=== PATIENT | male | born 1975 | race Two or more races ===

== ENCOUNTER 2019-02-15 01:52 | Emergency (ER) | payer SELFPAY ==
[~2019-02-15] VITALS: Ht 188 cm; Wt 90.7 kg
[2019-02-15 02:11] VITALS: BP 146/80
[2019-02-15] MEDS ORDERED: HALOPERIDOL LACTATE INJ 5 MG/ML VIAL IM ONE (02:30)
[2019-02-15] MEDS ORDERED: diphenhydrAMINE HCL 50 MG/ML VIAL IM ONE (02:30)
[2019-02-15] MEDS ORDERED: LORAZEPAM INJ 2 MG/ML VIAL IM ONE (02:30)
[2019-02-15 02:49] LABS: BASOPHILS % (AUTO) 0.2 % (0.0-2.0); EOSINOPHILS % (AUTO) 3.5 % (0.0-6.0); HEMATOCRIT 35 % (39-51); HEMOGLOBIN 11.1 g/dL (13.5-17.5); LYMPHOCYTES # (AUTO) 1.7 /CMM (0.8-4.8); LYMPHOCYTES % (AUTO) 31.2 % (20.0-44.0); MEAN CORPUSCULAR HGB CONC 31 g/dl (31.0-36.0); MEAN CORPUSCULAR VOLUME 69 fL (80-96); MONOCYTES # (AUTO) 0.5 /CMM (0.1-1.30); NEUTROPHILS % (AUTO) 56.1 % (43.0-81.0); PLATELET COUNT (AUTO) 370 /CMM (150-450); RED BLOOD CELL COUNT(AUTO) 5.12 MIL/uL (4.5-6.0); WHITE BLOOD COUNT (AUTO) 5.4 K/uL (4.3-11.0)
[2019-02-15 02:50] LABS: APPEARANCE,URINE Clear (CLEAR); BILIRUBIN,URINE Negative (NEGATIVE); BLOOD, URINE Negative Ery/uL (NEGATIVE); COLOR,URINE Yellow (YELLOW); KETONES,URINE Negative (NEGATIVE); LEUKOCYTE ESTERASE ,URINE Negative (NEGATIVE); NITRITE, URINE Negative (NEGATIVE); PH,URINE 5.5 (5.0-8.0); PROTEIN,URINE Negative (NEGATIVE); UGLUCOSE Negative (NEGATIVE); UROBILINOGEN,URINE 0.2 EU/dL (0.2)
[2019-02-15 03:07] LABS: ACETAMINOPHEN 0 ug/ml (10-30); ALANINE AMINOTRANSFERASE 102 U/L (12-78); ALCOHOL, BLOOD < 3 mg/dL (0-0); ALKALINE PHOSPHATASE 90 U/L (46-116); ASPARTATE AMINOTRANSFERASE 64 U/L (15-37); BILIRUBIN,DIRECT 0.1 mg/dL (0.0-0.2); BILIRUBIN,TOTAL 0.3 mg/dL (0.2-1.0); CARBON DIOXIDE 31 mmol/L (21-32); CHLORIDE 102 mmol/L (98-107); CREATININE 0.7 mg/dL (0.6-1.3); GLUCOSE 93 mg/dL (74-106); POTASSIUM 3.8 mmol/L (3.5-5.1); SODIUM SERUM 139 mmol/L (136-145); TOTAL PROTEIN, SERUM 8.9 g/dL (6.4-8.2); UREA NITROGEN, BLOOD 9 mg/dL (7-18)
--- NOTE | 2019-02-15 03:08 | NUR ---
[facility] TEAM CALLED FOR PSYCHIATRIC EVALUATION
--- NOTE | 2019-02-15 03:41 | NUR ---
[facility] SMITH BEDSIDE FOR PSYCH EVAL
[2019-02-15] MEDS ORDERED: LORAZEPAM INJ 2 MG/ML VIAL ONE (03:52)
[2019-02-15] MEDS ORDERED: diphenhydrAMINE HCL 50 MG/ML VIAL ONE (03:52)
[2019-02-15] MEDS ORDERED: HALOPERIDOL LACTATE INJ 5 MG/ML VIAL ONE (03:52)
[2019-02-15] MEDS ORDERED: OLANZAPINE 10 MG VIAL IM ONE (04:00)
[2019-02-15] MEDS ORDERED: LORAZEPAM 0.5 MG TABLET ONE (04:03)
--- NOTE | 2019-02-15 04:08 | NUR ---
PT WAS GIVEN TAP CARD AND REFUSED ALL OTHER RESOURCES. PT BEING DISCHARGED PER DR. MUHAMMAD. SECURITY CALLED TO ESCORT PT OUT OF ED. PT'S WOUNDS CLEANED AND DRESSED W/ 4X4'S AND GAUZE.
--- NOTE | 2019-02-15 04:13 | NUR ---
Patient discharged to home in stable condition. Written and verbal after care instructions given. Patient verbalizes understanding of instruction. PT AMBULATED WITH STEADY GAIT NOTED. NO S/S OF ACUTE DISTRESS NOTED
[2019-02-15] MEDS ORDERED: LORAZEPAM 0.5 MG TABLET PO ONE (04:30)
== END 2019-02-15 04:15 | disposition home or self-care (01) ==
LOC: ER 01:53
DX: R45.1 Restlessness and agitation (principal); F15.10 Other stimulant abuse, uncomplicated; Z86.19 Personal history of other infectious and parasitic diseases
CPT/HCPCS: 36415; 80048; 80076; 80305; 80307; 80329; 81001; 85025; 99284; G0480; J1200; J1630; J2060; 81000-TC

== ENCOUNTER 2019-04-26 04:12 | Emergency (ER) | payer SELFPAY ==
[~2019-04-26] VITALS: Ht 175.3 cm; Wt 72.6 kg
--- NOTE | 2019-04-26 04:30 | NUR ---
URINE COLLECTED AND SENT TO LAB
--- NOTE | 2019-04-26 04:30 | NUR ---
PT [id number] C/O SI W/ PLAN TO RUN INTO TRAFFIC. NO HI. HX OF MRSA. PT AXO4. RESPIRATIONS EVEN AND UNLABORED. PT AMBULATORY WITH STEADY GAIT.
--- NOTE | 2019-04-26 04:41 | NUR ---
PT IN HOSPITAL GOWN AND SOCKS ONLY. ALL BELONGS TAKEN AWAY FROM PATIENT. CALLED SECURITY FOR PT TO BE WANDED.
[2019-04-26] MEDS ORDERED: diphenhydrAMINE HCL 25 MG CAPSULE ONE (04:56)
[2019-04-26] MEDS: DIPHENHYDRAMINE HCL 12.5 MG/5 ML UDC PO ONE (05:00)
--- NOTE | 2019-04-26 05:10 | NUR ---
SUPERVISOR NEWSPAPER DELIVERIES AT BEDSIDE. LABS DRAWN AND SENT TO LAB.
[2019-04-26 05:24] LABS: APPEARANCE,URINE Clear (CLEAR); BILIRUBIN,URINE SMALL (NEGATIVE); BLOOD, URINE Negative Ery/uL (NEGATIVE); COLOR,URINE Yellow (YELLOW); KETONES,URINE Negative (NEGATIVE); LEUKOCYTE ESTERASE ,URINE Negative (NEGATIVE); NITRITE, URINE Negative (NEGATIVE); PH,URINE 5.5 (5.0-8.0); PROTEIN,URINE 30 mg/dl (NEGATIVE); UGLUCOSE Negative (NEGATIVE); UROBILINOGEN,URINE 0.2 EU/dL (0.2)
[2019-04-26 05:26] LABS: BASOPHILS % (AUTO) 0.4 % (0.0-2.0); EOSINOPHILS % (AUTO) 2.1 % (0.0-6.0); HEMATOCRIT 34 % (39-51); LYMPHOCYTES # (AUTO) 1.9 /CMM (0.8-4.8); LYMPHOCYTES % (AUTO) 33.3 % (20.0-44.0); MEAN CORPUSCULAR HGB CONC 32 g/dl (31.0-36.0); MEAN CORPUSCULAR VOLUME 72 fL (80-96); MONOCYTES # (AUTO) 0.6 /CMM (0.1-1.30); MONOCYTES % (AUTO) 10.1 % (2.0-12.0); NEUTROPHILS % (AUTO) 54.1 % (43.0-81.0); PLATELET COUNT (AUTO) 393 /CMM (150-450); RED BLOOD CELL COUNT(AUTO) 4.77 MIL/uL (4.5-6.0); WHITE BLOOD COUNT (AUTO) 5.6 K/uL (4.3-11.0)
[2019-04-26 05:37] LABS: CALCIUM, SERUM 9.1 mg/dL (8.5-10.1); CARBON DIOXIDE 25 mmol/L (21-32); CHLORIDE 104 mmol/L (98-107); CREATININE 0.8 mg/dL (0.6-1.3); GLUCOSE 83 mg/dL (74-106); POTASSIUM 3.6 mmol/L (3.5-5.1); SODIUM SERUM 139 mmol/L (136-145); UREA NITROGEN, BLOOD 15 mg/dL (7-18)
[2019-04-26 05:41] LABS: ALANINE AMINOTRANSFERASE 81 U/L (12-78); ALBUMIN 3.7 g/dL (3.4-5.0); ALCOHOL, BLOOD < 3 mg/dL (0-0); ALKALINE PHOSPHATASE 94 U/L (46-116); ASPARTATE AMINOTRANSFERASE 52 U/L (15-37); BILIRUBIN,DIRECT 0.1 mg/dL (0.0-0.2); BILIRUBIN,TOTAL 0.4 mg/dL (0.2-1.0); TOTAL PROTEIN, SERUM 8.3 g/dL (6.4-8.2)
[2019-04-26 05:42] LABS: ACETAMINOPHEN 0 ug/ml (10-30); SALICYLATE 0.9 mg/dL (2.8-20.0)
--- NOTE | 2019-04-26 05:49 | NUR ---
ART DECKHAND SPONGE BOAT PAGED.
[2019-04-26 05:51] LABS: BACTERIA,URINE Few /HPF (None Seen); RBC,URINE 0-2 /HPF (0-2); SQUAMOUS EPITHELIAL CELL,UR Few /HPF (None Seen); WBC,URINE 0-2 /HPF (0-3)
--- NOTE | 2019-04-26 06:30 | NUR ---
PT YELLING AND SCREAMING IN ROOM.
[2019-04-26 06:35] LABS: EOSINOPHILS % (MANUAL) 1 % (0-4); LYMPHOCYTES % (MANUAL) 35 % (16-48); MONOCYTES % (MANUAL) 10 % (0-11.0); NEUTROPHILS % (MANUAL) 54 (42-76)
--- NOTE | 2019-04-26 07:20 | NUR ---
ART CORK INSULATION INSTALLER AT BEDSIDE
--- NOTE | 2019-04-26 07:30 | NUR ---
REPORT GIVEN TO KAYKAY COUGHLIN FOR [facility].
--- NOTE | 2019-04-26 07:39 | NUR ---
PATIENT RESTING INSIDE ROOM. AWAKE, A/O X 4, NO ACUTE DISTRESS. DENIES ANY PAIN OR DISCOMFORT. WILL CONTINUE TO MONITOR
[2019-04-26 07:43] VITALS: BP 111/69
[2019-04-26] MEDS ORDERED: ARIPIPRAZOLE 2 MG TABLET ONE (08:28)
[2019-04-26] MEDS: ARIPIPRAZOLE 5 MG TABLET PO ONE (08:29)
[2019-04-26] MEDS ORDERED: LORAZEPAM 1 MG TABLET ONE (08:29)
[2019-04-26] MEDS: LORAZEPAM 1 MG TABLET PO ONE (08:29)
--- NOTE | 2019-04-26 09:22 | NUR ---
Patient discharged in stable condition. alert and oriented x 3, no acute distress. denies pain or discomfort. Written and verbal after care instructions given. Patient verbalizes understanding of instruction. TAP card provided to patient. patient had a warm meal. belongings returned to patient, no report of missing inventory. patient provided with clothing. shower provided.
== END 2019-04-26 09:27 | disposition home or self-care (01) ==
LOC: ER 04:16
DX: R45.851 Suicidal ideations (principal); Z88.8 Allergy status to other drugs, medicaments and biological substances
CPT/HCPCS: 36415; 80048; 80076; 80305; 80307; 80329; 81001; 85025; 99284; G0480; Q0163 ×2; 81000-TC